=== PATIENT | male | born 1985 | race Caucasian/White ===

== ENCOUNTER 2022-04-11 21:30 | Emergency (ER) | payer OTHER ==
[~2022-04-11] VITALS: Ht 175.3 cm; Wt 88.6 kg
[2022-04-11] MEDS ORDERED: ACETAMINOPHEN 500 MG TABLET PO ONE (22:00)
[2022-04-11] MEDS ORDERED: LIDOCAINE 1% 10 ML VIAL ID ONE (23:30)
[2022-04-12] MEDS ORDERED: BACITRACIN 0.9 GM PACKET OINTMENT TP ONE
[2022-04-12 00:09] VITALS: BP 142/90
== END 2022-04-12 00:15 | disposition home or self-care (01) ==
LOC: EMS 21:32
DX: S61.411A Laceration without foreign body of right hand, initial encounter (principal); Z88.0 Allergy status to penicillin; W45.8XXA Other foreign body or object entering through skin, initial encounter; Y93.89 Activity, other specified; Y92.89 Other specified places as the place of occurrence of the external cause; Y99.8 Other external cause status
CPT/HCPCS: 99282; 12002; J3490